=== PATIENT | male | born 1935 | race Caucasian/White ===

== ENCOUNTER 2019-02-21 12:52 | Emergency (ER) | payer MEDICARE, SELFPAY ==
[2019-02-21 13:13] VITALS: BP 100/53; PULSE 82; RESP 16; TEMP 36.6; O2SAT 99; BMI 26.6
[2019-02-21 13:19] LABS: Add Manual Diff / Slide Review NO; Basophils Absolute Auto 0 /uL (0-100); Basophils Percent Auto 0.6 % (0-2); Eosinophils Absolute Auto 200 /uL (0-450); Eosinophils Percent Auto 2.9 % (2-4); Hematocrit 30.9 % (41-53); Hemoglobin 10.5 g/dL (13.5-17.5); Lymphocytes Absolute Auto 1000 /uL (1100-4500); Lymphocytes Percent Auto 16.6 % (25-40); Mean Corpuscular Hemoglobin 32.7 PG (26-34); Mean Corpuscular Volume 96.3 fL (80-100); Monocytes Absolute Auto 500 /uL (0-900); Monocytes Percent Auto 7.9 % (3-14); Neutrophils Absolute Auto 4200 /uL (1500-7000); Platelet Count 250 X10^3/uL (150-400); Red Blood Cell Count 3.21 X10^6/uL (4.5-5.9); Red Cell Distribution Width 14.2 % (11.6-14.8); White Blood Cell Count 5.9 X10^3/uL (4.5-11.0)
[2019-02-21] MEDS: SODIUM CHLORIDE 0.9% 1,000 ML 125 ML IV (13:25)
[2019-02-21 13:27] LABS: Alanine Aminotransferase 103 IU/L (21-72); Albumin 2.5 g/dL (3.5-5.0); Alkaline Phosphatase 79 U/L (38-126); Aspartate Aminotransferase 76 IU/L (17-59); BUN Creatinine Ratio 7.5 (6-22); Bilirubin Total 0.5 mg/dL (0.2-1.3); Blood Urea Nitrogen 41 mg/dL (9-20); Calcium 8.3 mg/dL (8.4-10.2); Carbon Dioxide 32 mmol/L (22-32); Chloride 98 mmol/L (98-107); Globulin 2.5 g/dL (1.7-4.1); Glucose 111 mg/dL (80-110); HEMOLYSIS < 15 (0-50); Lipase 192 U/L (23-300); Magnesium 1.4 mg/dL (1.6-2.3); Phosphorous 3.8 mg/dL (2.3-3.7); Potassium 3.9 mmol/L (3.4-5.1); Sodium 135 mmol/L (137-145)
[2019-02-21 13:30] VITALS: BP 96/56; PULSE 68; RESP 12; O2SAT 100
--- NOTE | 2019-02-21 13:42 | ED.GENADULT ---
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 He does have history of end-stage renal disease. He is on peritoneal dialysis. Patient does state he has been constipated recently. This was after he stopped his stool softeners because he was having multiple days of diarrhea. He has not had any changes to his medications or his dialysis regimen. 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 He felt like he needed to urinate. He does still produce urine. States he was walking to the bathroom. This was under the assistance of nursing staff the office when he had an episode where he ?lost consciousness ?. There was no seizure-like activity. No loss of bowel or bladder. Unsure as to how long the symptoms lasted. Did not hit his head. Patient states that he was aware what was going on fairly quickly after the episode. Brought in by EMS for evaluation. Related Data Home Medications Medication Instructions Recorded Confirmed B complex-vitamin C-folic acid 1 tab PO DAILY 02/21/19 02/21/19 [Aziza-Delroy] allopurinol 100 mg PO DAILY 02/21/19 02/21/19 amlodipine 5 mg PO DAILY 02/21/19 02/21/19 ascorbic acid (vitamin C) [Vitamin 250 mg PO DAILY 02/21/19 02/21/19 C] aspirin 81 mg PO DAILY 02/21/19 02/21/19 atorvastatin 40 mg PO DAILY 02/21/19 02/21/19 calcitriol 0.5 mcg PO DAILY 02/21/19 02/21/19 carvedilol 6.25 mg PO BID 02/21/19 02/21/19 cholecalciferol (vitamin D3) 5,000 unit PO DAILY 02/21/19 02/21/19 [Vitamin D3] cyanocobalamin (vitamin B-12) 500 mcg PO DAILY 02/21/19 02/21/19 [Vitamin B-12] docusate sodium 100 mg PO BID 02/21/19 02/21/19 donepezil 5 mg PO BEDTIME 02/21/19 02/21/19 doxazosin 4 mg PO BID 02/21/19 02/21/19 furosemide 40 mg PO BID 02/21/19 02/21/19 gentamicin 1 applic TOPICAL DAILY 02/21/19 02/21/19 nitroglycerin [Nitrostat] 0.4 mg SUBLINGUAL Q5M PRN 02/21/19 02/21/19 omega 4-zbj-ghx-fish oil [Fish Oil] 1 cap PO DAILY 02/21/19 02/21/19 potassium chloride 10 meq PO BID 02/21/19 02/21/19 Review of Systems Constitutional Constitutional: Denies fever(s), Denies frequent falls, Denies headache(s) and Denies weakness ENT Ears, Nose, Mouth, and Throat: Denies vertigo, Denies dizziness and Denies headache(s) Cardiovascular Cardiovascular: Denies chest pain, Reports syncope and Denies dyspnea Respiratory Respiratory: Denies dyspnea Gastrointestinal Gastrointestinal: Denies abdominal pain, Reports constipation, Denies nausea and Denies vomiting Genitourinary Genitourinary: Denies dysuria Musculoskeletal Musculoskeletal: Denies myalgias and Denies arthralgias Integumentary/Breasts Skin/Breast: Denies lesions and Denies rash Neurologic Neurologic: Denies burning sensations, Denies vertigo, Denies dizziness, Reports syncope, Denies frequent falls, Denies headache(s), Denies paresthesias and Denies weakness Hematologic/Lymphatic Hematologic/Lymphatic: Denies easy bleeding and Denies easy bruising Patient History Medical History End stage renal disease on dialysis (Acute) Social History marital status: lives independently: Yes Exam Initial Vital Signs Initial Vital Signs: Vital Signs Temperature 97.9 F 02/21/19 13:13 Pulse Rate 82 02/21/19 13:13 Respiratory Rate 16 02/21/19 13:13 Blood Pressure 100/53 L 02/21/19 13:13 Pulse Oximetry 99 02/21/19 13:13 Const General: cooperative and comfortable Orientation: alert, awake and oriented x3 HENMT Head: normal to inspection and normocephalic Resp Effort & Inspection: normal respiratory effort Auscultation: clear to auscultation bilaterally Cardio Rate: regular rate Rhythm: regular rhythm Pulses: radial pulses present GI Inspection: non-distended Palpation: soft, No firm and No tender Skin Lesions: no lesions Rashes: no rashes Neuro General: alert, awake and oriented x3 Cognition: normal cognition Speech: speech normal Gait: normal gait Motor: muscle tone normal throughout Extrem General: normal to inspection and capillary refill normal Psych Appearance: grossly normal and well kempt Course Orders Ordered: ED Orders 02/21/19 13:04 Complete Blood Count AUTO DIFF Stat Comprehensive Metabolic Panel Stat Lipase Stat Magnesium Stat Phosphorous Stat Troponin I Stat 02/21/19 13:05 EKG-12 Lead Stat 02/21/19 15:33 Troponin I Stat Discontinued Medications Sodium Chloride (Normal Saline 0.9%) 1,000 mls @ 125 mls/hr IV CONT DUGLAS Last Infusion: 02/21/19 15:45 Dose: 0 mls/hr Documented by: Admin: 02/21/19 13:25 Dose: 125 mls/hr Documented by: GINNY Vital Signs Vital signs: Vital Signs - 8 hr 02/21/19 13:13 02/21/19 13:30 02/21/19 13:45 Temperature 97.9 F Pulse Rate 82 68 98 H Respiratory Rate 16 12 22 Blood Pressure 100/53 L Blood Pressure [Left Arm] 96/56 L 89/39 L Pulse Oximetry 99 100 93 02/21/19 14:00 02/21/19 15:02 02/21/19 15:40 Temperature Pulse Rate 73 69 82 Respiratory Rate 17 13 16 Blood Pressure Blood Pressure [Left Arm] 101/49 L 110/61 106/62 Pulse Oximetry 97 98 97 Medical Decision Making Lab Data Lab results reviewed: Yes I reviewed the patient's lab results. Result diagrams: 02/21/19 13:04 02/21/19 13:04 Labs: Lab Results 02/21/19 02/21/19 02/21/19 Range/Units 13:04 13:04 15:33 WBC 5.9 (4.5-11.0) X10^3/uL RBC 3.21 L (4.5-5.9) X10^6/uL Hgb 10.5 L (13.5-17.5) g/dL Hct 30.9 L (41-53) % MCV 96.3 (80-100) fL MCH 32.7 (26-34) PG MCHC 34.0 (30-36) % RDW 14.2 (11.6-14.8) % Plt Count 250 (150-400) X10^3/uL Neut % (Auto) 72.0 (50-75) % Lymph % (Auto) 16.6 L (25-40) % Nobles % (Auto) 7.9 (3-14) % Eos % (Auto) 2.9 (2-4) % Baso % (Auto) 0.6 (0-2) % Neut # (Auto) 4200 (3416-8523) /uL Lymph # (Auto) 1000 L (0310-3568) /uL Nobles # (Auto) 500 (0-900) /uL Eos # (Auto) 200 (0-450) /uL Baso # (Auto) 0 (0-100) /uL Sodium 135 L (137-145) mmol/L Potassium 3.9 (3.4-5.1) mmol/L Chloride 98 (98-107) mmol/L Carbon Dioxide 32 (22-32) mmol/L BUN 41 H (9-20) mg/dL Creatinine 5.50 H (0.66-1.25) mg/dL Estimated GFR 10.0 L (>60) mL/min BUN/Creatinine Ratio 7.5 (6-22) Glucose 111 H (80-110) mg/dL Calcium 8.3 L (8.4-10.2) mg/dL Phosphorus 3.8 H (2.3-3.7) mg/dL Magnesium 1.4 L (1.6-2.3) mg/dL Total Bilirubin 0.5 (0.2-1.3) mg/dL AST 76 H (17-59) IU/L ALT 103 H (21-72) IU/L Alkaline Phosphatase 79 (38-126) U/L Troponin I 0.020 0.015 (0.01-0.034) ng/mL Total Protein 5.0 L (6.3-8.2) g/dL Albumin 2.5 L (3.5-5.0) g/dL Globulin 2.5 (1.7-4.1) g/dL Albumin/Globulin Ratio 1.0 (1.0-2.8) Lipase 192 (23-300) U/L ECG Data Attestation: I personally reviewed and interpreted this ECG as follows: Prior ECG tracings: not available for review Interpretation: Sinus rhythm Ventricular rate is 71 Normal axis Normal QRS Normal QTC No ST T wave changes MDM Narrative Medical decision making narrative: Patient ambulate around the emergency department out any problems. He has at his dry weight. His blood pressure normally runs between 90 and 110 systolic. This is at baseline form. Labs relatively unremarkable. It does not appear like this was seizure-like activity. Patient's symptoms not consistent with a CVA/TIA. was somewhat concerned about anxiety. He just received information that he was going to after do a longer course of antibiotics for SBP. Had a long discussion with the patient the family regarding his symptoms. Will hold on further workup for now. He was given return precautions and follow-up instructions. He expressed understanding and agreement plan. 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 Contact your primary provider for follow-up. Return to the emergency department for any new or worsening symptoms Prescriptions: No Action furosemide 40 mg tablet 40 mg PO BID RF: 0 atorvastatin 40 mg tablet 40 mg PO DAILY RF: 0 donepezil 5 mg tablet 5 mg PO BEDTIME RF: 0 allopurinol 100 mg tablet 100 mg PO DAILY RF: 0 carvedilol 6.25 mg tablet 6.25 mg PO BID RF: 0 potassium chloride 10 mEq tablet extended release 10 meq PO BID RF: 0 amlodipine 5 mg tablet 5 mg PO DAILY RF: 0 aspirin 81 mg Tablet,Delayed Release (Dr/Ec) 81 mg PO DAILY RF: 0 cyanocobalamin (vitamin B-12) [Vitamin B-12] 500 mcg Tablet 500 mcg PO DAILY RF: 0 ascorbic acid (vitamin C) [Vitamin C] 250 mg Tablet 250 mg PO DAILY RF: 0 calcitriol 0.5 mcg Capsule 0.5 mcg PO DAILY RF: 0 nitroglycerin [Nitrostat] 0.4 mg Tablet, Sublingual 0.4 mg SUBLINGUAL Q5M PRN (Reason: Chest Pain) RF: 0 docusate sodium 100 mg Capsule 100 mg PO BID RF: 0 doxazosin 4 mg tablet 4 mg PO BID RF: 0 gentamicin 0.1 % Cream 1 applic TOPICAL DAILY RF: 0 Aziza-Delroy 0.8 mg Tablet 1 tab PO DAILY RF: 0 cholecalciferol (vitamin D3) [Vitamin D3] 5,000 unit Tablet 5,000 unit PO DAILY RF: 0 omega 0-lvp-pna-fish oil [Fish Oil] 1,000 mg (120 mg-180 mg) Capsule 1 cap PO DAILY RF: 0
[2019-02-21 13:45] VITALS: BP 89/39; PULSE 98; RESP 22; O2SAT 93
--- NOTE | 2019-02-21 13:58 | PC.NURSE ---
1300: was at dialysis clinic for check up--does pertioneal dialysis and being treated for peritonitis with IP ABX. walking to BR at clinic bc he was feeling nauseous and syncopized with 15sec LOC and some dry heaving. arrived AAOx3. forgetful due dementia hx. BP soft 100/50's per that is normal. last IP tx this morning before arriving at clinic. IV placed and labs drawn. connected to cardiac monitoring 1400: NS infusing at 125ml/hr. BP continues to be low--80's systolic. made aware and verbal order of 500mL NS bolus. pt tolerating well at this time. family at side.
[2019-02-21 14:00] VITALS: BP 101/49; PULSE 73; RESP 17; O2SAT 97
[2019-02-21 15:02] VITALS: BP 110/61; PULSE 69; RESP 13; O2SAT 98
--- NOTE | 2019-02-21 15:24 | PC.NURSE ---
1515: Resting in bed. Dr Alves ok'd pt to eat. Daughter out to get him food. NAD. updated on plan of care
--- NOTE | 2019-02-21 15:34 | PC.NURSE ---
2nd trop drawn and sent per order
--- NOTE | 2019-02-21 15:39 | PC.NURSE ---
pt ambulated with steady gait. aware. awaiting result of 2nd trop and plan to DC
[2019-02-21 15:40] VITALS: BP 106/62; PULSE 82; RESP 16; O2SAT 97
[2019-02-21 16:02] LABS: Troponin I 0.015 ng/mL (0.01-0.034)
== END 2019-02-21 16:42 | disposition home or self-care (01) ==
PROVIDERS: Emergency Provider Emergency Medicine
DX: R55 Syncope and collapse (principal)
CPT/HCPCS: 36415; 80053; 83690; 83735; 84100; 84484; 85025; 93005; 96360; 96361; 99283; 99284